=== PATIENT | male | born 1980 | race Caucasian/White ===

== ENCOUNTER 2024-02-20 12:11 | Inpatient (IN) | payer SELFPAY ==
[~2024-02-20] VITALS: Ht 170.2 cm; Wt 73.9 kg
[2024-02-20] MEDS ORDERED: ONDANSETRON HCL 4MG/2ML INJ IV STA (13:07)
[2024-02-20] MEDS ORDERED: PANTOPRAZOLE SODIUM 40 MG/VIAL IV STA (13:07)
[2024-02-20 14:08] LABS: HEMATOCRIT. 26.1 % (42.0-52.0); HEMOGLOBIN. 7.6 g/dL (14.0-18.0); MEAN CORPUSCULAR HEMOGLOBIN 18.3 pg (28.0-32.0); MEAN CORPUSCULAR HGB CONC 29.3 g/dL (31.0-37.0); MEAN CORPUSCULAR VOLUME 62.4 fL (80.0-94.0); RED BLOOD CELL COUNT 4.17 mill/uL (4.7-6.1); RED CELL DISTRIBUTION WIDTH 21.5 % (11.6-14.6)
[2024-02-20 14:13] LABS: DIFFERENTIAL COMMENT 1
[2024-02-20 14:18] LABS: INR 1.2; PROTHROMBIN TIME 13.3 sec (9.6-11.0)
[2024-02-20 14:20] LABS: CARBON DIOXIDE 23 mEq/L (21-32); CHLORIDE 106 mEq/L (98-107); SODIUM 136 mEq/L (136-145)
[2024-02-20 14:21] LABS: CALCIUM 8.6 mg/dL (8.7-10.4)
[2024-02-20 14:25] LABS: CREATININE 0.5 mg/dL (0.6-1.3)
[2024-02-20 14:26] LABS: GLUCOSE 98 mg/dL (70-105); UREA NITROGEN BLOOD 7 mg/dL (9-23)
[2024-02-20 14:27] LABS: ALANINE AMINOTRANSFERASE 16 IU/L (10-49); ASPARTATE AMINOTRANSFERASE 32 IU/L (<34)
[2024-02-20 14:28] LABS: BILIRUBIN DIRECT 0.6 mg/dL (<=3.0); BILIRUBIN TOTAL 1.1 mg/dL (0.1-1.0); PROTEIN TOTAL 7.8 g/dL (6.0-8.3)
[2024-02-20] MEDS ORDERED: PANTOPRAZOLE 80 MG in SODIUM CHLORIDE 0.9% 100 ML IV SCH (15:30)
[2024-02-20] MEDS ORDERED: OCTREOTIDE 1,000 MCG in SODIUM CHLORIDE 0.9% 100 ML IV STA (16:28)
[2024-02-20 16:38] LABS: PLATELET 26 x1000/uL (130-400)
[2024-02-20 17:01] LABS: HYPOCHROMASIA 1+; MICROCYTOSIS 1+; PLATELET ESTIMATE DECREASED
[2024-02-20] MEDS: OCTREOTIDE 1,000 MCG in SODIUM CHLORIDE 0.9% 98 ML IV STA (17:34)
[2024-02-20] MEDS: SODIUM CHLORIDE 0.9% 1,000 ML IV ONE (17:35)
[2024-02-20] MEDS: PANTOPRAZOLE SODIUM 40 MG/VIAL IV NR (17:35)
[2024-02-20] MEDS: ONDANSETRON HCL 4MG/2ML INJ IV STA (17:35)
[2024-02-20] MEDS: OCTREOTIDE ACETATE 50 MCG/ML 1ML IV STA (17:40)
[2024-02-20] MEDS: CEFTRIAXONE 1GM/50ML 50 ML IV ONE (17:40)
[2024-02-20 18:08] LABS: CLARITY URINE CLEAR (CLEAR); COLOR URINE YELLOW (YELLOW); GLUCOSE URINE NEGATIVE (NEGATIVE); KETONES URINE TRACE (NEGATIVE); LEUKOCYTE ESTERASE URINE NEGATIVE (NEGATIVE); NITRITE URINE NEGATIVE (NEGATIVE); OCCULT BLOOD URINE NEGATIVE (NEGATIVE); PH URINE 7.5 (4.5-8.0); PROTEIN URINE NEGATIVE (NEGATIVE); SPECIFIC GRAVITY URINE 1.009 (1.005-1.030)
[2024-02-20] MEDS: PANTOPRAZOLE 80 MG in SODIUM CHLORIDE 0.9% 100 ML IV SCH (18:44)
[2024-02-20 20:00] VITALS: BP 126/80; PULSE 78; RESP 18; TEMP 98.2
[2024-02-20 22:00] LABS: HEMATOCRIT. 24.9 % (42.0-52.0); HEMOGLOBIN. 7.2 g/dL (14.0-18.0); MEAN CORPUSCULAR HEMOGLOBIN 18.4 pg (28.0-32.0); MEAN CORPUSCULAR HGB CONC 28.8 g/dL (31.0-37.0); MEAN CORPUSCULAR VOLUME 63.8 fL (80.0-94.0); MEAN PLATELET VOLUME 8.2 fl (7.4-10.4); RED CELL DISTRIBUTION WIDTH 21.4 % (11.6-14.6); WHITE BLOOD COUNT 2.9 x1000/uL (4.5-11.0)
[2024-02-20 22:23] LABS: DIFFERENTIAL COMMENT 1
[2024-02-20 22:28] LABS: PLATELET 22 x1000/uL (130-400)
[2024-02-20 22:46] LABS: HYPOCHROMASIA 2+; OVALOCYTES 1+; PLATELET ESTIMATE MARKEDLY DECREASED; TEAR DROP CELLS 1+
[2024-02-20 22:47] LABS: MICROCYTOSIS 2+; TARGET CELLS 2+
[2024-02-21] VITALS (9 sets, daily range): BP systolic 107–130; BP diastolic 57–80; PULSE 61–88; RESP 18–20; TEMP 97.7–99.1
[2024-02-21] MEDS ORDERED: ONDANSETRON HCL 4MG/2ML INJ IV PRN (10:00)
[2024-02-21] MEDS ORDERED: IPRATROPIUM/ALBUTEROL 0.5-3(2.5)MG/3ML NEB HHN PRN (10:00)
[2024-02-21] MEDS ORDERED: DIPHENHYDRAMINE 50MG/ML VIAL IV PRN (10:00)
[2024-02-21] MEDS: SODIUM CHLORIDE 0.9% 1,000 ML IV SCH (18:00)
[2024-02-21] MEDS ORDERED: LORAZEPAM 1MG TABLET PO PRN (18:45)
[2024-02-21] MEDS: OCTREOTIDE 1,000 MCG in SODIUM CHLORIDE 0.9% 98 ML IV SCH (21:16)
[2024-02-21] MEDS: CHLORDIAZEPOXIDE 25MG CAPSULE PO SCH (21:16)
[2024-02-21] MEDS ORDERED: OXYCODONE HCL/ACETAMINOPHEN 5/325MG TABLET PO PRN ×2 (22:45)
[2024-02-21] MEDS ORDERED: NALOXONE HCL 0.4MG/ML VIAL IV PRN (23:00)
[2024-02-22] VITALS: BP 106/55; PULSE 66; RESP 20; TEMP 97.7
[2024-02-22 06:50] LABS: BASOPHILS % 1.9 % (0.0-2.0); EOSINOPHILS % 2.2 % (0.0-5.0); HEMATOCRIT. 25.9 % (42.0-52.0); HEMOGLOBIN. 7.5 g/dL (14.0-18.0); MEAN CORPUSCULAR HEMOGLOBIN 18.2 pg (28.0-32.0); MEAN CORPUSCULAR HGB CONC 29.1 g/dL (31.0-37.0); MEAN CORPUSCULAR VOLUME 62.6 fL (80.0-94.0); MONOCYTES % 14.9 % (2.0-8.0); RED BLOOD CELL COUNT 4.14 mill/uL (4.7-6.1); RED CELL DISTRIBUTION WIDTH 22.5 % (11.6-14.6); WHITE BLOOD COUNT 2.6 x1000/uL (4.5-11.0)
[2024-02-22 06:51] LABS: DIFFERENTIAL COMMENT 1
[2024-02-22 06:59] LABS: CHLORIDE 105 mEq/L (98-107); POTASSIUM 3.6 mEq/L (3.5-5.1); SODIUM 137 mEq/L (136-145)
[2024-02-22 07:00] LABS: CALCIUM 8.6 mg/dL (8.7-10.4); CARBON DIOXIDE 24 mEq/L (21-32)
[2024-02-22 07:05] LABS: CREATININE 0.6 mg/dL (0.6-1.3); GLUCOSE 89 mg/dL (70-105); IRON 18 ug/dL (65-175); UREA NITROGEN BLOOD 9 mg/dL (9-23)
[2024-02-22 07:07] LABS: TOTAL IRON BINDING CAPACITY 358 ug/dl (250-425)
[2024-02-22 07:22] LABS: FERRITIN 11 ng/mL (22-322)
[2024-02-22 07:23] LABS: VITAMIN B12 SERUM 790 pg/mL (211-911)
[2024-02-22] MEDS: FOLIC ACID 1MG TABLET PO SCH (09:42)
[2024-02-22] MEDS: MULTIVITAMINS,THER W-MINERALS TABLET PO SCH (09:42)
[2024-02-22 09:51] LABS: MEAN PLATELET VOLUME 9.1 fl (7.4-10.4)
[2024-02-22 09:52] LABS: ADD RBC MORPHOLOGY NO
[2024-02-22 09:54] LABS: PLATELET 44 x1000/uL (130-400)
[2024-02-22 11:23] VITALS: BP 146/92; PULSE 72; RESP 17; TEMP 98
[2024-02-22] MEDS: THIAMINE HCL 100MG TABLET PO SCH (15:18)
[2024-02-22 16:00] VITALS: BP 135/75; PULSE 68; RESP 19; TEMP 98.3
[2024-02-22] MEDS: FERROUS SULFATE 325MG TABLET PO SCH (18:35)
[2024-02-22] MEDS: ASCORBIC ACID 500 MG TABLET PO SCH (18:36)
[2024-02-22 20:00] VITALS: BP 127/75; PULSE 68; RESP 20; TEMP 97.9
[2024-02-23 03:35] LABS: HEMATOCRIT. 25.5 % (42.0-52.0); HEMOGLOBIN. 7.3 g/dL (14.0-18.0); MEAN CORPUSCULAR HEMOGLOBIN 18.1 pg (28.0-32.0); MEAN CORPUSCULAR HGB CONC 28.6 g/dL (31.0-37.0); MEAN CORPUSCULAR VOLUME 63.3 fL (80.0-94.0); MEAN PLATELET VOLUME 8.2 fl (7.4-10.4); PLATELET 53 x1000/uL (130-400); RED BLOOD CELL COUNT 4.03 mill/uL (4.7-6.1); RED CELL DISTRIBUTION WIDTH 21.9 % (11.6-14.6); WHITE BLOOD COUNT 2.5 x1000/uL (4.5-11.0)
[2024-02-23 03:39] LABS: CHLORIDE 107 mEq/L (98-107); POTASSIUM 3.9 mEq/L (3.5-5.1); SODIUM 140 mEq/L (136-145)
[2024-02-23 03:40] LABS: CALCIUM 8.3 mg/dL (8.7-10.4); CARBON DIOXIDE 26 mEq/L (21-32)
[2024-02-23 03:45] LABS: CREATININE 0.6 mg/dL (0.6-1.3); GLUCOSE 109 mg/dL (70-105); UREA NITROGEN BLOOD 6 mg/dL (9-23)
[2024-02-23 03:47] LABS: ALANINE AMINOTRANSFERASE 24 IU/L (10-49); ALBUMIN 3.4 g/dL (3.2-4.8); ASPARTATE AMINOTRANSFERASE 39 IU/L (<34)
[2024-02-23 03:48] LABS: PROTEIN TOTAL 6.8 g/dL (6.0-8.3)
[2024-02-23 03:52] LABS: INR 1.2; PROTHROMBIN TIME 13.6 sec (9.6-11.0)
[2024-02-23 04:00] VITALS: BP 129/66; PULSE 70; RESP 20; TEMP 99
[2024-02-23 04:12] LABS: DIFFERENTIAL COMMENT 1
[2024-02-23 08:00] VITALS: BP 128/74; PULSE 69; RESP 20; TEMP 98.7
[2024-02-23 12:00] VITALS: BP 128/76; PULSE 65; RESP 19; TEMP 98.1
[2024-02-23 12:28] LABS: ANISOCYTOSIS 2+; NUCLEATED RED BLOOD CELLS 1 /100 WBC; PLATELET ESTIMATE MARKEDLY DECREASED
[2024-02-23 12:29] LABS: MICROCYTOSIS 2+
[2024-02-23] MEDS ORDERED: THIA100T72 PO (13:27)
[2024-02-23] MEDS ORDERED: CHLO25CA10 PO (13:27)
[2024-02-23] MEDS ORDERED: MULT-230 MT (13:27)
[2024-02-23] MEDS ORDERED: FOLI-43 PO (13:27)
[2024-02-23] MEDS ORDERED: LABETALOL 5MG/ML 4ML INJ IV PRN (15:00)
[2024-02-23] MEDS ORDERED: MEPERIDINE HCL/PF 25MG/ML CPJ IV PRN (15:00)
[2024-02-23] MEDS ORDERED: ONDANSETRON HCL 4MG/2ML INJ IV PRN (15:00)
[2024-02-23] MEDS ORDERED: HYDROMORPHONE HCL/PF 2MG/ML INJ IV PRN (15:00)
[2024-02-23 16:00] VITALS: BP 151/86; PULSE 65; RESP 20; TEMP 97.5
[2024-02-23 20:00] VITALS: BP 136/54; PULSE 72; RESP 18; TEMP 97.7
[2024-02-24] VITALS: BP 129/72; PULSE 86; RESP 18; TEMP 97.7
[2024-02-24 04:00] VITALS: BP 130/69; PULSE 86; RESP 18; TEMP 97.7
[2024-02-24 08:00] VITALS: BP 132/67; PULSE 72; RESP 18; TEMP 98.6
[2024-02-24 12:00] VITALS: BP 150/86; PULSE 85; RESP 20; TEMP 97.6
[2024-02-24] MEDS ORDERED: COR3 MT (14:46)
[2024-02-24] MEDS ORDERED: OMEP40CA20 MT (14:46)
[2024-02-24] MEDS ORDERED: SUCR1TAB30 MT (14:46)
[2024-02-24 15:12] VITALS: BP 140/86; PULSE 85; TEMP 97.6; O2SAT 99
[2024-02-24] MEDS: SUCRALFATE 1G TABLET PO SCH (17:17)
[2024-02-24] MEDS ORDERED: CARVEDILOL 3.125 MG TABLET PO SCH (21:00)
[2024-02-25] MEDS ORDERED: OMEPRAZOLE 20MG CAPSULE EXTENDED RELEASE PO SCH (07:10)
== END 2024-02-24 18:20 | disposition home or self-care (01) ==
LOC: ER 12:11 → EDBEDREQTM 16:56 → EDBEDREQ 16:56 → 5WST 22:13 → 8WST 02-21 03:20
PROVIDERS: ADMIT Internal Medicine; ATTEND Internal Medicine
PROC: 30233R1 Transfusion of Nonautologous Platelets into Peripheral Vein, Percutaneous Approach (ICD-10-PCS; 2024-02-21)
PROC: 0DB78ZX Excision of Stomach, Pylorus, Via Natural or Artificial Opening Endoscopic, Diagnostic (ICD-10-PCS; principal; 2024-02-23)
DX: K74.60 Unspecified cirrhosis of liver (principal); D69.6 Thrombocytopenia, unspecified; K76.6 Portal hypertension; I85.10 Secondary esophageal varices without bleeding; D50.9 Iron deficiency anemia, unspecified; F10.20 Alcohol dependence, uncomplicated; F41.9 Anxiety disorder, unspecified; K92.1 Melena; R16.1 Splenomegaly, not elsewhere classified; K80.20 Calculus of gallbladder without cholecystitis without obstruction; Z79.899 Other long term (current) drug therapy
CPT/HCPCS: 36415; 74176; 76700; 80048; 80053; 80076; 81003; 82270; 82607; 82728; 82746; 83540; 83550; 85025; 85044; 86850; 86900; 86920; 88305; 93970; 99285; C1893; J0696; J2354; J2405; J2470; J7030; J7050; P9034